=== PATIENT | male | born 1995 | race African-American/Black ===

== ENCOUNTER 2016-09-27 11:06 | Emergency (ER) | payer OTHER ==
[2016-09-27 11:39] VITALS: BP 110/74
--- NOTE | 2016-09-27 13:11 | UC ---
Throat Pain/Nasal Ciro HPI - HPI Summary HPI Summary: TWO DAYS OF SORE SWOLLEN TONSILS, FATIGUE FEVER, AND BODY ACHES. NO RASHES, NO ABDOMINAL PAIN. HISTORY OF FREQUENT STREP INFECTIONS. - History of Current Complaint Chief Complaint: UCRespiratory Stated Complaint: SORE THROAT Time Seen by Provider: 09/27/16 11:45 Hx Obtained From: Patient Onset/Duration: Gradual Onset, Lasting Days, Still Present Severity: Moderate Cough: None Associated Signs & Symptoms: Positive: Dysphagia, Hoarseness, Fever - Allergies/Home Medications Allergies/Adverse Reactions: Allergies Allergy/AdvReac Type Severity Reaction Status Date / Time No Known Allergies Allergy Verified 09/27/16 11:35 Home Medications: Home Medications NK [No Home Medications Reported] 09/27/16 [History Confirmed 09/27/16] PMH/Surg Hx/FS Hx/Imm Hx Previously Healthy: Yes Endocrine History Of: Denies: Diabetes, Thyroid Disease Cardiovascular History Of: Denies: Cardiac Disorders, Hypertension Respiratory History Of: Denies: COPD, Asthma GI/ History Of: Denies: Ulcer - Surgical History Surgical History: None - Family History Known Family History: Negative: Cardiac Disease - Social History Occupation: Student Lives: Alone Alcohol Use: Occasionally Substance Use Type: None Substance Use Comment - Amount & Last Used: Last used 07/20/14 Smoking Status (MU): Never Smoked Tobacco Review of Systems Constitutional: Fever, Chills Skin: Negative Eyes: Negative ENT: Sore Throat Respiratory: Negative Cardiovascular: Negative Gastrointestinal: Negative Genitourinary: Negative Motor: Negative Neurovascular: Negative Musculoskeletal: Myalgia Neurological: Negative Psychological: Negative All Other Systems Reviewed And Are Negative: Yes Physical Exam Triage Information Reviewed: Yes Appearance: No Pain Distress, Well-Nourished, Ill-Appearing - MILD Vital Signs: Initial Vital Signs Temp 100.1 F 09/27/16 11:36 Pulse 104 09/27/16 11:36 Resp 16 09/27/16 11:36 BP 110/74 09/27/16 11:36 Pulse Ox 99 09/27/16 11:36 Vital Signs Reviewed: Yes Eye Exam: Normal ENT: Positive: Hearing grossly normal, Pharyngeal erythema, TMs normal, Tonsillar swelling, Tonsillar exudate Dental Exam: Normal Neck exam: Normal Neck: Positive: Supple, Nontender, No Lymphadenopathy. Negative: Nuchal Rigidity, Tenderness @, Enlarged Nodes @ Respiratory Exam: Normal Respiratory: Positive: Chest non-tender, Lungs clear, Normal breath sounds, No respiratory distress, No accessory muscle use Cardiovascular Exam: Normal Cardiovascular: Positive: RRR, No Murmur, Pulses Normal Abdominal Exam: Normal Abdomen Description: Positive: Nontender, No Organomegaly. Negative: Hepatomegaly, Splenomegaly Musculoskeletal Exam: Normal Neurological Exam: Normal Psychological Exam: Normal Skin Exam: Normal Throat Pain/Nasal Course/Dx - Differential Dx/Diagnosis Differential Diagnosis/HQI/PQRI: Mononucleosis, Pharyngitis, Sinusitis, Tonsillitis Provider Diagnoses: TONSILLITIS. POSSIBLE MONO Discharge - Discharge Plan Condition: Stable Disposition: HOME Patient Education Materials: Mononucleosis (ED), Tonsillitis (ED) Forms: *School Release Referrals: [facility] [place] [facility] [Outside] [facility] [Outside] No Primary Care Phys,NOPCP [Primary Care Provider] -
[2016-09-28 11:05] LABS: EBV Response NO
[2016-09-28 12:08] LABS: Hematocrit 44 % (42-52); Hemoglobin 14.3 g/dl (14.0-18.0); Mean Corpuscular HGB Conc 33 g/dl (31-36); Mean Corpuscular Hemoglobin 31 pg (27-31); Mean Corpuscular Volume 93 fL (80-94); Mean Platelet Volume 9 um3 (7.4-10.4); Red Blood Count 4.67 10^6/ul (4.0-5.4); Red Cell Distribution Width 13 % (10.5-15); White Blood Count 12.2 10^3/ul (3.5-10.8)
[2016-09-28 12:09] LABS: Add Diff/Slide Review? Slide Review Added; Comments Flag Yes
[2016-09-28 12:12] LABS: Mono Internal Control QC Line Present
[2016-09-28 12:13] LABS: Manual Entry Verification DOM0004
== END 2016-09-27 13:22 | disposition home or self-care (01) ==
LOC: UCEAST 11:06
DX: J03.90 Acute tonsillitis, unspecified (principal)
CPT/HCPCS: 36415; 85025; 86308; 87651; 99211; G0463

== ENCOUNTER 2017-07-13 08:34 | Emergency (ER) | payer OTHER ==
[2017-07-13 08:46] VITALS: BP 126/72
--- NOTE | 2017-07-13 09:08 | UC ---
Throat Pain/Nasal Ciro HPI - History of Current Complaint Chief Complaint: UCRespiratory Stated Complaint: SORE THROAT Time Seen by Provider: 07/13/17 08:48 Hx Obtained From: Patient Onset/Duration: Sudden Onset Severity: Moderate Associated Signs & Symptoms: Positive: Dysphagia. Negative: FB Sensation, Drooling, Hoarseness, Fever, Vomiting - Allergies/Home Medications Allergies/Adverse Reactions: Allergies Allergy/AdvReac Type Severity Reaction Status Date / Time No Known Allergies Allergy Verified 07/13/17 08:44 PMH/Surg Hx/FS Hx/Imm Hx Previously Healthy: Yes - Surgical History Surgical History: None - Family History Known Family History: Negative: Cardiac Disease - Social History Alcohol Use: Occasionally Substance Use Type: None Substance Use Comment - Amount & Last Used: Last used 07/20/14 Smoking Status (MU): Never Smoked Tobacco Review of Systems Constitutional: Negative - Neg fever,cough Skin: Negative Eyes: Negative ENT: Sore Throat Respiratory: Negative Cardiovascular: Negative Gastrointestinal: Negative Genitourinary: Negative Motor: Negative Neurovascular: Negative Musculoskeletal: Negative Neurological: Negative Psychological: Negative All Other Systems Reviewed And Are Negative: Yes Physical Exam Triage Information Reviewed: Yes Vital Signs: Initial Vital Signs Temp 37.2 C 07/13/17 08:44 Pulse 76 07/13/17 08:44 Resp 15 07/13/17 08:44 BP 126/72 07/13/17 08:44 Pulse Ox 100 07/13/17 08:44 Eye Exam: Normal Eyes: Positive: Conjunctiva Clear ENT Exam: Normal ENT: Positive: Pharyngeal erythema, TMs normal, Tonsillar swelling, Tonsillar exudate. Negative: Nasal congestion, Nasal drainage, Muffled voice Dental Exam: Normal Dental: Positive: Cervical Lymphadenopathy - B/L Neck exam: Normal Neck: Positive: 1 Respiratory Exam: Normal Cardiovascular Exam: Normal Abdominal Exam: Normal Musculoskeletal Exam: Normal Neurological Exam: Normal Psychological Exam: Normal Skin Exam: Normal Throat Pain/Nasal Course/Dx - Course Assessment/Plan: Rapid strep neg, will send out for throat cx and tx with abx for exudative pharyngitis - Differential Dx/Diagnosis Provider Diagnoses: exudative pharyngitis Discharge - Discharge Plan Condition: Stable Disposition: HOME Prescriptions: Amoxicillin/Clavulanate TAB* [Augmentin TAB 875*] 875 mg PO BID 7 Days #14 tab Referrals: No Primary Care Phys,NOPCP [Primary Care Provider] -
--- NOTE | 2017-07-16 18:33 | UC ---
- Progress Note Progress Note: Throat culture with Strep Group B and Arcanobacterium. Treated with augmentin which is indicated treatment. No change
== END 2017-07-13 09:17 | disposition home or self-care (01) ==
LOC: UCEAST 08:34
DX: J02.9 Acute pharyngitis, unspecified (principal)
CPT/HCPCS: 87070; 87077; 87651; 99212; G0463

== ENCOUNTER 2018-11-06 09:43 | Emergency (ER) | payer OTHER ==
[2018-11-06 09:56] VITALS: BP 106/65
[2018-11-06] MEDS ORDERED: Acetaminophen TAB* 325 MG PO ONE (10:02)
--- NOTE | 2018-11-06 10:04 | UC ---
Throat Pain/Nasal Ciro HPI - HPI Summary HPI Summary: Patient hs had sore thraot for 3 days, mild cough, no other symptoms reported - History of Current Complaint Chief Complaint: UCRespiratory Stated Complaint: SORE THROAT Time Seen by Provider: 11/06/18 09:57 Hx Obtained From: Patient Onset/Duration: Sudden Onset, Lasting Days Severity: Mild Pain Intensity: 1 Associated Signs & Symptoms: Positive: Dysphagia - Allergies/Home Medications Allergies/Adverse Reactions: Allergies Allergy/AdvReac Type Severity Reaction Status Date / Time No Known Allergies Allergy Verified 11/06/18 09:56 Home Medications: Home Medications NK [No Home Medications Reported] 11/06/18 [History Confirmed 11/06/18] PMH/Surg Hx/FS Hx/Imm Hx Previously Healthy: Yes - Surgical History Surgical History: None - Family History Known Family History: Negative: Cardiac Disease - Social History Alcohol Use: Occasionally Substance Use Type: None Substance Use Comment - Amount & Last Used: Last used 07/20/14 Smoking Status (MU): Never Smoked Tobacco Review of Systems All Other Systems Reviewed And Are Negative: Yes ENT: Positive: Sore Throat Is Patient Immunocompromised?: No Physical Exam Triage Information Reviewed: Yes Appearance: Well-Appearing, Well-Nourished, Pain Distress Vital Signs: Initial Vital Signs Temp 98.7 F 11/06/18 09:53 Pulse 82 11/06/18 09:53 Resp 16 11/06/18 09:53 BP 106/65 11/06/18 09:53 Pulse Ox 100 11/06/18 09:53 Vital Signs Reviewed: Yes Eye Exam: Normal ENT: Positive: Pharyngeal erythema, Tonsillar swelling, Tonsillar exudate Dental Exam: Normal Respiratory Exam: Normal Cardiovascular Exam: Normal Abdominal Exam: Normal Bowel Sounds: Positive: Present Musculoskeletal Exam: Normal Neurological Exam: Normal Psychological Exam: Normal Skin Exam: Normal Throat Pain/Nasal Course/Dx - Course Course Of Treatment: hx obtained, exam performed, meds reviewed, given tylenol for pain. rapid strep obtaine and was negative - Differential Dx/Diagnosis Differential Diagnosis/HQI/PQRI: Otitis Media, Pharyngitis, Sinusitis, URI Provider Diagnosis: Pharyngitis Discharge - Sign-Out/Discharge Documenting (check all that apply): Patient Departure All imaging exams completed and their final reports reviewed: No Studies - Discharge Plan Condition: Stable Disposition: HOME Patient Education Materials: Pharyngitis (ED) Referrals: No Primary Care Phys,NOPCP [Primary Care Provider] - Additional Instructions: 1. your strep test was negative 2. Continue with tylenol or ibuprofen for pain 3. Salt water gargles, hot fluids and honey for sore throat 4. typically should resolve in 7-10 days on its own, if not improving or more symtpoms develop please follow up. - Billing Disposition and Condition Condition: STABLE Disposition: Home - Attestation Statements Provider Attestation: I was available for consult. This patient was seen by the GARIMA. The patient was not presented to , seen by or examined by -Arianna Hill MD
== END 2018-11-06 10:22 | disposition home or self-care (01) ==
LOC: UCEAST 09:43
DX: J02.9 Acute pharyngitis, unspecified (principal); R13.10 Dysphagia, unspecified; R05 Cough
CPT/HCPCS: 87651; 99212; A9270-GY; G0463